=== PATIENT | male | born 1950 | race Caucasian/White ===

== ENCOUNTER 2020-03-09 12:19 | Inpatient (IN) | payer MEDICARE, OTHER ==
[~2020-03-09] VITALS: Ht 188 cm; Wt 64.0 kg
[2020-03-09] MEDS ORDERED: OLAN10TA3 PO (12:39)
[2020-03-09] MEDS ORDERED: OLAN20TA3 PO (12:39)
--- NOTE | 2020-03-09 12:49 | NUR ---
Dr Laws at the bedside for MSE.
--- NOTE | 2020-03-09 12:54 | NUR ---
Lunch tray provided, pt ate w/ good appetite.
[2020-03-09 12:56] LABS: CARBON DIOXIDE 26 mmol/L (21-32); CHLORIDE 104 mmol/L (98-107); CREATININE 0.9 mg/dL (0.6-1.3); GLUCOSE 89 mg/dL (74-106); POTASSIUM 4.3 mmol/L (3.5-5.1); UREA NITROGEN, BLOOD 14 mg/dL (7-18)
[2020-03-09 13:02] LABS: ALANINE AMINOTRANSFERASE 37 U/L (16-63); ALKALINE PHOSPHATASE 53 U/L (50-136); ASPARTATE AMINOTRANSFERASE 26 U/L (15-37); BILIRUBIN,DIRECT 0.1 mg/dL (0.0-0.2); BILIRUBIN,TOTAL 0.4 mg/dL (0.2-1.0); TOTAL PROTEIN, SERUM 7.2 g/dL (6.4-8.2)
[2020-03-09 13:03] LABS: ACETAMINOPHEN < 2.0 ug/mL (10-30); BASOPHILS # (AUTO) 0.1 K/uL (0.0-8.0); BASOPHILS % (AUTO) 0.7 % (0.0-2.0); EOSINOPHILS # (AUTO) 0.1 K/uL (0.0-0.7); EOSINOPHILS % (AUTO) 1.1 % (0.0-7.0); HEMATOCRIT 45.4 % (36.7-47.1); HEMOGLOBIN 15.2 g/dL (12.5-16.3); LYMPHOCYTES # (AUTO) 1.9 K/uL (20.0-40.0); LYMPHOCYTES % (AUTO) 20.2 % (20.5-51.5); MEAN CORPUSCULAR HEMOGLOBIN 28.8 uug (23.8-33.4); MEAN CORPUSCULAR HGB CONC 34 g/dL (32.5-36.3); MEAN CORPUSCULAR VOLUME 85.8 fL (73.0-96.2); MONOCYTES # (AUTO) 1.3 K/uL (2.0-10.0); MONOCYTES % (AUTO) 13.6 % (0.0-11.0); NEUTROPHILS # (AUTO) 6.2 K/uL (1.8-8.9); NEUTROPHILS % (AUTO) 64.4 % (38.5-71.5); PLATELET COUNT (AUTO) 166 K/uL (152-348); RED BLOOD CELL COUNT(AUTO) 5.29 MIL/uL (4.06-5.63); WHITE BLOOD COUNT (AUTO) 9.6 K/uL (3.6-10.2)
[2020-03-09 13:06] LABS: ETHANOL < 3 MG/DL (0-0)
--- NOTE | 2020-03-09 13:45 | NUR ---
Patient is resting comfortably in bed with eyes closed, NAD noted.
--- NOTE | 2020-03-09 13:49 | NUR ---
Anjum mcneill in [facility] - 03/09/[address] at [address] Laws at the bedside for MSE.
[2020-03-09] MEDS ORDERED: MAGNESIUM HYDROXIDE 30 ML LIQUID UDC PO PRN (15:00)
[2020-03-09] MEDS ORDERED: BLOOD SUGAR DIAGNOSTIC 1 EACH STRIP VI ONE (15:00)
[2020-03-09] MEDS ORDERED: MAG HYDROX/AL HYDROX/SIMETH 30 ML LIQUID UDC PO PRN (15:00)
[2020-03-09 15:16] VITALS: BP 139/89
[2020-03-09] MEDS: LORAZEPAM 0.5 MG TABLET PO PRN (15:30)
--- NOTE | 2020-03-09 16:26 | NUR ---
GPS ADMISSION NOTES, ADMITTING THIS 69 Y MALE FROM EMERGENCY ROOM ON WHEELCHAIR, PATIENT APPEAR TO BE UN KEPT, DISORGANIZED AND CONFUSED, PATIENT AOX1-2, VS STABLE WITH TEMP 98f PATIENT REFUSED TO SIGN PAPERS AND STAYED IN HIS ROOM AFTER CHANGING HIS GOWN, PATIENT ASKED FOR ATIVAN AND TOOK A NAP, ADVISEMENT OF HIS HOLD WAS GIVEN AND ASSESS FROM HEAD TO TOE NOTED SOME RASHES, PATIENT HAS DARKENED FINGERNAILS THAT LOOKS LIKE FROM CHRONIC CIGARETTES SMOKING, WILL CONTINUE MONITOR
[2020-03-09] MEDS: ACETAMINOPHEN 325 MG TABLET PO PRN (17:51)
[2020-03-09 20:36] VITALS: BP 119/70
[2020-03-09] MEDS: TEMAZEPAM 7.5 MG CAPSULE PO PRN (20:53)
[2020-03-10] MEDS: LORAZEPAM 0.5 MG TABLET PO PRN ×4 (01:50→17:47)
--- NOTE | 2020-03-10 06:11 | NUR ---
GPS: Pt.slept for 4 hrs last night. Observed to be intermittently talking to self last night. No increased agitation noted. Safe environment provided. Ativan PO given for anxiety prn. Will continue to re-direct prn.
[2020-03-10 07:30] VITALS: BP 135/86
[2020-03-10 08:23] LABS: BILIRUBIN,TOTAL 0.3 mg/dL (0.2-1.0); CREATININE 0.7 mg/dL (0.6-1.3); TOTAL PROTEIN, SERUM 7.3 g/dL (6.4-8.2)
--- NOTE | 2020-03-10 10:09 | NUR ---
pt in day room voices no complaints at this time no acute distress willl cont to monitor. able to make needs known
[2020-03-10] MEDS: OLANZAPINE 2.5 MG TABLET PO SCH ×2 (13:00→16:01)
--- NOTE | 2020-03-10 14:13 | NUR ---
Social Work Initial Discharge: Patient currently resides at a Board and Care at [address] [place] [address]; ([phone]). Patient's sister Valerie ([phone]) is involved in patient's care, however; she is unavailable at the moment. bridge worker contacted writing manager Josh ([phone]) and it was a wrong number. bridge worker will work with the patient and the MD regarding appropriate discharge planning. bridge worker will form a safe and proper discharge plan.
--- NOTE | 2020-03-10 14:14 | NUR ---
Social Work Family Contact: ornamental bronze worker contact contacted patient's sister Valerie ([phone]) who was unavailable. This policy writer typist left a voicemail.
--- NOTE | 2020-03-10 14:16 | NUR ---
Social Work Coordination of Care: emergency service worker contacted home visit field care manager Josh ([phone]) and it was a wrong number. This entry writer is attempting to find more information on patient's Board and Care.
[2020-03-10 16:00] VITALS: BP 141/91
--- NOTE | 2020-03-10 17:47 | NUR ---
PT IN DAY ROOM SHOWS NO S/S OF ACUTE DISTRESS GIVEN PRN ATIVAN FOR ANXIETY DUE TO NOT SMOKING
--- NOTE | 2020-03-10 20:00 | NUR ---
RECEIVED PATIENT IN HIS ROOM IN BED SLEEPING BUT EASILY AROUSABLE. PATIENT NOTED A/O X 1. HE IS ABLE TO AMBULATE WITH STEADY GAIT AND ABLE TO MAKE HIS NEEDS KNOWN. UPON INTERVIEW, PATIENT STATED THAT HE WAS FEELING ANXIOUS, WHEN ASKED WHAT MAKES HIM ANXIOUS, HE SAID "I WANT TO SMOKE BUT THEY DON'T LET ME". PATIENT WAS REASSURED AND REDIRECTED. MOOD IS DEPRESSED, AFFECT IS BLUNTED. HE DENIED SI/HI/VH/AH. HE IS ABLE TO CFS. PATIENT IS REASSURED FOR HIS SAFETY. V/S STABLE AT THIS TIME. SAFETY AND FALL PRECAUTION IN PLACE. WILL CONTINUE TO MONITOR.
[2020-03-10 20:30] VITALS: BP 149/95
[2020-03-10] MEDS ORDERED: OLANZAPINE 5 MG TABLET PO SCH (21:00)
[2020-03-11] MEDS ORDERED: NICOTINE 21 MG/24HR PATCH TD SCH (01:29)
[2020-03-11 07:30] VITALS: BP 139/87
[2020-03-11] MEDS: OLANZAPINE 2.5 MG TABLET PO SCH (08:27)
[2020-03-11] MEDS: NICOTINE 21 MG/24HR PATCH TD SCH (08:27)
--- NOTE | 2020-03-11 09:50 | NUR ---
Social Work Family Contact: tie up worker contacted patient's sister Valerie ([phone]) to gather collateral. Per Valerie, she would want patient to return back to his Independent Living; Resort Desk Clerk Josh ([phone]).
--- NOTE | 2020-03-11 09:51 | NUR ---
Social Work Coordination of Care: harm reduction worker spoke with Josh ([phone]) area safety manager of patient's Independent Living that he resides out. Per Josh, he stated that patient is welcomed back upon discharge.
[2020-03-11] MEDS: LORAZEPAM 0.5 MG TABLET PO PRN ×2 (10:33→16:06)
[2020-03-11] MEDS ORDERED: OLANZAPINE 2.5 MG TABLET PO SCH (13:00)
[2020-03-11] MEDS: OLANZAPINE 5 MG TABLET PO SCH (13:16)
--- NOTE | 2020-03-11 14:51 | NUR ---
Social Work Note/Substance Abuse Intervention: Patient was provided with a brief substance abuse intervention and referred to [facility] ([phone]), [facility] ([phone]), and [facility] ([phone]).
[2020-03-11 16:08] VITALS: BP 118/71
--- NOTE | 2020-03-11 20:25 | NUR ---
Received patient in his room, initiative to contact, patient is focused on ativan. Patient is med compliant, no behavioral issue, will remain in a [facility] facility for further evaluation and treatment.
[2020-03-11 20:41] VITALS: BP 120/80
[2020-03-11] MEDS ORDERED: OLANZAPINE 5 MG TABLET PO SCH (21:00)
[2020-03-12 08:02] VITALS: BP 132/88
[2020-03-12] MEDS: OLANZAPINE 5 MG TABLET PO SCH ×3 (08:11→20:52)
[2020-03-12] MEDS: NICOTINE 21 MG/24HR PATCH TD SCH (08:11)
--- NOTE | 2020-03-12 09:48 | NUR ---
Social Work PC Hearing Notification: tool salvage worker contacted patient's sister Valerie, ([phone]) and notified patients probable cause of hearing today.
[2020-03-12] MEDS: LORAZEPAM 0.5 MG TABLET PO PRN ×3 (10:27→20:04)
--- NOTE | 2020-03-12 15:00 | NUR ---
Social Work Individual Therapy Note: derrick worker met with patient for brief counseling to address patient's aggressive and combative behavior. Patient was cooperative and calm with this newspaper writer. Patient stated that he was only "aggressive" at the facility because he "did something". Patient did not want to mention what he did. Patient stated he no longer is aggressive or combative. This newspaper writer explored alternative coping skills on how to handle his anger in a stressful situation. Patient stated that he "usually" walks away in a stressful situation. derrick worker actively listened, provided support, and helped patient find alternative coping skills.
--- NOTE | 2020-03-12 15:26 | NUR ---
Gps/Senior Firewall Engineer-Attends group therapy, redirectable. Compliant with routine meds. kept coming to the nurses station, asking when her next medications.. Flat affect , anxious.
[2020-03-12 16:00] VITALS: BP 140/85
--- NOTE | 2020-03-12 18:19 | NUR ---
Gps/Director Dietetics Department- Stayed in the dinning room during meals. Stayed in the activity room during the afternoon. Flat affect, kept coming to the Nurses station asking when his next medications due. Constant redirections.
[2020-03-12 20:00] VITALS: BP 125/69
--- NOTE | 2020-03-12 23:18 | NUR ---
PATIENT RECEIVED IN HALLWAY ALERT/ORIENTED X 2 WITH CONFUSION NOTED. PATIENT CONTINUES TO ASK FOR ATIVAN. PATIENT COMPLAINT WITH MEDICATION. IN NO APPARENT DISTRESS AND NO AGGRESSIVE OR COMBATIVE BEHAVIOR NOTED. PATIENT IS EASILY IRRITABLE.
[2020-03-13 07:30] VITALS: BP 121/72
[2020-03-13] MEDS: OLANZAPINE 5 MG TABLET PO SCH ×3 (09:22→20:43)
[2020-03-13] MEDS: NICOTINE 21 MG/24HR PATCH TD SCH (09:23)
--- NOTE | 2020-03-13 14:20 | NUR ---
Social Work Individual Therapy Note: harm reduction worker met with patient for brief counseling to address patient's aggressive and combative behavior. Patient was cooperative and calm with this publicity writer. Patient is able to have meaningful conversation with this publicity writer. This publicity writer and patient discussed on "How to Manage Anger" and patient stated that "everyone needs to think positive to be positive". Patient stated that he is "very positive" and tries to stay positive. harm reduction worker actively listened, provided support, and guidance.
[2020-03-13] MEDS: LORAZEPAM 0.5 MG TABLET PO PRN ×2 (14:31→19:43)
[2020-03-13 15:55] VITALS: BP 140/89
[2020-03-13 21:28] VITALS: BP 131/82
--- NOTE | 2020-03-14 06:59 | NUR ---
GPS/ PT WAS RECEIVED IN ROOM, ALERT WITH FREQUENT NEED TO ASK FOR ATIVAN. PRN WAS GIVEN AND WAS EFFECTIVE. ROUTINE MEDS TOLERATED WELL. PT SLEPT 7.00HRUS DURING NIGHT. NO BEHAVIOR OR C/O NOTED.
[2020-03-14 07:30] VITALS: BP 110/63
[2020-03-14] MEDS: LORAZEPAM 0.5 MG TABLET PO PRN ×2 (07:49→15:55)
[2020-03-14] MEDS: NICOTINE 21 MG/24HR PATCH TD SCH (08:37)
[2020-03-14] MEDS: OLANZAPINE 5 MG TABLET PO SCH ×3 (08:37→20:14)
[2020-03-14 16:00] VITALS: BP 123/80
--- NOTE | 2020-03-14 17:00 | NUR ---
Gps/Manager Business Management- Patient continued asking when he can have his ativan again ,informed patient medication schedules . Needed constant reminder, redirections. Anxious, claimed he has the urge to smoke, reminded pt. he had a nicotine patch on , claimed it does not work.
[2020-03-14 21:09] VITALS: BP 138/85
[2020-03-15 07:30] VITALS: BP 114/84
[2020-03-15] MEDS: NICOTINE 21 MG/24HR PATCH TD SCH (08:38)
[2020-03-15] MEDS: OLANZAPINE 5 MG TABLET PO SCH ×3 (08:39→20:21)
[2020-03-15] MEDS: LORAZEPAM 0.5 MG TABLET PO PRN ×3 (11:12→20:20)
--- NOTE | 2020-03-15 11:57 | NUR ---
Gps/Lobbyist- Angry at the ALARM SECURITY OR SURVEILLANCE MONITOR, wanting to give self shower but per ALARM SECURITY OR SURVEILLANCE MONITOR pt. not initiating to shower, noted difficulty sequencing task, staring down the floor, water running but not doing anything. Needed verbal cueing and encouragement, irritability noted. PRN ativan 0.5 mg 1 tab was given po.
[2020-03-15 16:00] VITALS: BP 133/79
[2020-03-15 20:48] VITALS: BP 107/60
--- NOTE | 2020-03-15 21:43 | NUR ---
GPS/RN: PT WAS RECEIVED IN HIS BED, AWAKE AND A/O X2. VERBALLY RESPOND TO ASSESSMENT QUESTIONS. PT WAS RESTLESS AND FREQUENTLY ASKING FOR ATIVAN. ORIENT TO TIME AND WHEN PRN WILL BE DUE. PT UNABLE TO TEAMS WITH REALITY. PRN ATIVAN WAS GIVEN ORDER. PT RESTING AT THIS TIME. WILL CONTINUE TO OBSERVE.
[2020-03-16 07:30] VITALS: BP_SYST 106; BP_SYST 125; BP_DIAS 57; BP_DIAS 85
[2020-03-16] MEDS: NICOTINE 21 MG/24HR PATCH TD SCH (10:13)
[2020-03-16] MEDS: OLANZAPINE 5 MG TABLET PO SCH ×3 (10:30→20:07)
--- NOTE | 2020-03-16 14:35 | NUR ---
Social Work Individual Therapy Note: foundry worker met with patient for brief counseling to address patient's aggressive and combative behavior. Patient was cooperative and calm with this health technical writer. Patient is able to have a meaningful conversation and stated what his favorite hobbies are. Patient stated that when he goes outside in the sun he feels "more calm". This health technical writer actively listened and provided support.
[2020-03-16] MEDS: ACETAMINOPHEN 325 MG TABLET PO PRN (15:15)
[2020-03-16 15:40] VITALS: BP 114/64
[2020-03-16] MEDS: LORAZEPAM 0.5 MG TABLET PO PRN (17:18)
[2020-03-16 20:15] VITALS: BP 141/86
[2020-03-16] MEDS: TEMAZEPAM 7.5 MG CAPSULE PO PRN (21:22)
[2020-03-17 07:59] VITALS: BP 119/74
[2020-03-17] MEDS: NICOTINE 21 MG/24HR PATCH TD SCH (08:23)
[2020-03-17] MEDS: OLANZAPINE 5 MG TABLET PO SCH ×3 (08:23→20:23)
--- NOTE | 2020-03-17 11:00 | NUR ---
Social Work Note: iron worker apprentice spoke with Board and Care haz tech Josh ([phone]) who stated that he would want to resume [facility] ([phone]). iron worker apprentice contacted [facility] ([phone]) and spoke with Any who scheduled an appointment for a nurse to evaluate patient upon discharge.
[2020-03-17] MEDS: MULTIVITAMINS,THERAPEUTIC TABLET PO SCH (11:05)
[2020-03-17] MEDS: LORAZEPAM 0.5 MG TABLET PO PRN ×3 (11:07→20:52)
--- NOTE | 2020-03-17 11:35 | NUR ---
Social Work Coordination of Care: Social work contacted patient's doctor office and (Food Service Attendant) Dr. Cedillo will follow up with patient upon discharge at his Board and Care. trolley worker contacted [facility] and spoke with [facility] who scheduled with his (Psychiatrist) Dr. Haley from [facility] [address] [place] [address] [address], [place] [address]; ([phone]) on April 02, 2020 at 2:45PM via phone call. trolley worker contacted [facility] ([phone]) and spoke with [facility] who scheduled an appointment for a nurse to evaluate patient upon discharge.
--- NOTE | 2020-03-17 11:57 | NUR ---
Social Work Firearm Report: Voice Over Artist completed and submitted a [employer] firearms report for 5250 grave disability certification. A copy of report has been placed in patient chart.
[2020-03-17 15:57] VITALS: BP 110/61
[2020-03-17 20:55] VITALS: BP 109/59
--- NOTE | 2020-03-18 03:56 | NUR ---
GPS/RN: PT WAS NOTED WITH SOME RESTLESSNESS AND ASKING FOR PRN ATIVAN. MEDICATION GIVEN ORDER AND ROUTINE MEDS. PT WAS REDIRECTED, AND ENCOURAGED TO VENT OUT FEELINGS TO REDUCE STRESS. ABLE TO KEPT CALM AT THIS TIME ASLEEP AND Q 15/MINS HEAD COUNT CONTINUE.
[2020-03-18 07:30] VITALS: BP 128/71
[2020-03-18 08:13] LABS: BASOPHILS % (AUTO) 0.7 % (0.0-2.0); EOSINOPHILS # (AUTO) 0.1 K/uL (0.0-0.7); EOSINOPHILS % (AUTO) 1.6 % (0.0-7.0); HEMATOCRIT 41.2 % (36.7-47.1); HEMOGLOBIN 13.9 g/dL (12.5-16.3); LYMPHOCYTES # (AUTO) 1.5 K/uL (20.0-40.0); LYMPHOCYTES % (AUTO) 23.8 % (20.5-51.5); MEAN CORPUSCULAR HEMOGLOBIN 28.9 uug (23.8-33.4); MEAN CORPUSCULAR HGB CONC 34 g/dL (32.5-36.3); MONOCYTES # (AUTO) 0.9 K/uL (2.0-10.0); NEUTROPHILS # (AUTO) 3.9 K/uL (1.8-8.9); NEUTROPHILS % (AUTO) 59.9 % (38.5-71.5); PLATELET COUNT (AUTO) 170 K/uL (152-348); RED BLOOD CELL COUNT(AUTO) 4.79 MIL/uL (4.06-5.63); WHITE BLOOD COUNT (AUTO) 6.5 K/uL (3.6-10.2)
[2020-03-18 08:38] LABS: THYROID STIMULATING HORMONE 0.855 mIU/mL (0.358-3.740)
[2020-03-18 08:57] LABS: BILIRUBIN,TOTAL 0.3 mg/dL (0.2-1.0); CREATININE 0.9 mg/dL (0.6-1.3); MAGNESIUM 1.7 mg/dL (1.8-2.4); PHOSPHOROUS 3.4 mg/dL (2.5-4.9); POTASSIUM 4.3 mmol/L (3.5-5.1); TOTAL PROTEIN, SERUM 6.8 g/dL (6.4-8.2)
[2020-03-18] MEDS: NICOTINE 21 MG/24HR PATCH TD SCH (09:43)
[2020-03-18] MEDS: OLANZAPINE 5 MG TABLET PO SCH ×3 (09:43→20:05)
[2020-03-18] MEDS: MULTIVITAMINS,THERAPEUTIC TABLET PO SCH (09:43)
[2020-03-18] MEDS: LORAZEPAM 0.5 MG TABLET PO PRN ×2 (11:04→17:08)
[2020-03-18] MEDS ORDERED: SILVER NITRATE APPLICATOR STICK EACH TP ONE (13:45)
[2020-03-18] MEDS ORDERED: MAGNESIUM OXIDE 400 MG TABLET PO ONE (14:00)
[2020-03-18 16:00] VITALS: BP 128/78
[2020-03-18 20:58] VITALS: BP 126/83
--- NOTE | 2020-03-18 21:31 | NUR ---
Received patient in the hallway. Calm and cooperative. Med compliant. No behavioral issue will remain in a psych facility for further evaluation and treatment.
[2020-03-19 07:30] VITALS: BP 118/71
[2020-03-19] MEDS: MULTIVITAMINS,THERAPEUTIC TABLET PO SCH (08:23)
[2020-03-19] MEDS: OLANZAPINE 5 MG TABLET PO SCH ×3 (08:24→21:26)
[2020-03-19] MEDS: NICOTINE 21 MG/24HR PATCH TD SCH (08:29)
[2020-03-19] MEDS: LORAZEPAM 0.5 MG TABLET PO PRN ×3 (11:44→20:27)
--- NOTE | 2020-03-19 11:47 | NUR ---
Gps/Curator Of Collections- Per patient , he takes ativan because he has urge, anxious to smoke, and when he leaves here he will go back to smoking per pt.
--- NOTE | 2020-03-19 15:37 | NUR ---
Gps/Tapering Machine Operator-Kept coming to Nurses station, kept asking what time he can have his next ativan, claimed he is feeling anxious ,wanting to smoke.
[2020-03-19 16:00] VITALS: BP 138/76
[2020-03-19 20:00] VITALS: BP 136/82
[2020-03-20 07:30] VITALS: BP 144/93
[2020-03-20] MEDS: OLANZAPINE 5 MG TABLET PO SCH ×2 (08:00→12:25)
[2020-03-20] MEDS: MULTIVITAMINS,THERAPEUTIC TABLET PO SCH (08:00)
[2020-03-20] MEDS: NICOTINE 21 MG/24HR PATCH TD SCH (08:00)
--- NOTE | 2020-03-20 08:05 | NUR ---
Social Work Discharge Note: Patient will be discharged home to his [facility] and Care [address] [place] [address]; ([phone]). Per patients sister Valerie, ([phone]) stated that hplc chemist of patients [facility] and [facility], Josh ([phone]) will product picker patient at 1PM. Patients sister Valerie ([phone]) is aware and agreeable with discharge plan. Patient is aware and agreeable with discharge plan. Patient denies suicidal or homicidal ideation. Patient presents with appropriate mood and congruent affect. Patient will continue following up with his (Loan Processing Supervisor) Dr. Cedillo at his [facility] on 03/22/20. Patient will also be following up with his (Psychiatrist) Dr. Haley from [facility] [address] [facility] [address], [place] [address]; ([phone]) on April 02, 2020 at 2:45PM via phone call and will discuss smoking cessation and address substance abuse dependency. [facility] ([phone]) will resume services and a nurse will evaluate patient on 03/21/20. Patient will follow up with substance abuse programs: [facility] Substance Abuse Self-helpline ; [facility] ([phone]); [facility] ; [facility] ([phone]); [facility] ([phone]); [facility] ([phone]); [facility] ([phone]). Patient presents with euthymic mood and congruent affect.
[2020-03-20] MEDS: LORAZEPAM 0.5 MG TABLET PO PRN (11:22)
--- NOTE | 2020-03-20 12:46 | NUR ---
Gps/Apartment Maintenance Manager- For discharged to [facility] this pm at 1300, Josh (otr owner operator truck driver of the facility) will provide transportation. Reviewed discharged instructions, all belongings given back to patient, denies pain, no discomfort, Denies S.I. no homocidal ideation noted. Patient claimed he is happy to go home. reviewed diet, prescriptions/medications, safety, skin care , follow up with his Psychiatrist and Medicial Doctor, verbalized understanding.
== END 2020-03-20 13:30 | DRG 885 ==
LOC: ER 12:19 → GPS 13:50
PROVIDERS: ADMIT Psychiatry & Neurology Psychosomatic Medicine; ATTEND Internal Medicine
PROC: 0HBRXZZ Excision of Toe Nail, External Approach (ICD-10-PCS; principal; 2020-03-18)
DX: F25.9 Schizoaffective disorder, unspecified (principal); E44.0 Moderate protein-calorie malnutrition; Z68.1 Body mass index [BMI] 19.9 or less, adult; B35.1 Tinea unguium; E83.42 Hypomagnesemia; F17.210 Nicotine dependence, cigarettes, uncomplicated; R62.7 Adult failure to thrive; E88.09 Other disorders of plasma-protein metabolism, not elsewhere classified; F03.90 Unspecified dementia, unspecified severity, without behavioral disturbance, psychotic disturbance, mood disturbance, and anxiety
CPT/HCPCS: 36415; 71045; 80329; 82652; 83735; 84100; 84153; 84443; 85025; 93005; A4663; G0480; G0480-TC

== ENCOUNTER 2020-03-31 13:41 | Inpatient (IN) | payer MEDICARE, OTHER ==
[~2020-03-31] VITALS: Ht 185.4 cm; Wt 63.0 kg
[2020-03-31] MEDS ORDERED: OLAN20TA3 PO (14:04)
[2020-03-31] MEDS ORDERED: NICOTINE ALT NOSTRI (14:04)
[2020-03-31] MEDS ORDERED: LORA-259 PO (14:04)
[2020-03-31] MEDS ORDERED: NICO2GUM9 BC (14:09)
[2020-03-31 14:24] LABS: BASOPHILS # (AUTO) 0.1 K/uL (0.0-8.0); BASOPHILS % (AUTO) 0.9 % (0.0-2.0); EOSINOPHILS # (AUTO) 0.2 K/uL (0.0-0.7); EOSINOPHILS % (AUTO) 2.4 % (0.0-7.0); HEMATOCRIT 43.9 % (36.7-47.1); HEMOGLOBIN 14.7 g/dL (12.5-16.3); LYMPHOCYTES % (AUTO) 30.6 % (20.5-51.5); MEAN CORPUSCULAR HEMOGLOBIN 28.7 uug (23.8-33.4); MEAN CORPUSCULAR HGB CONC 33 g/dL (32.5-36.3); MEAN CORPUSCULAR VOLUME 85.9 fL (73.0-96.2); MONOCYTES % (AUTO) 14.4 % (0.0-11.0); NEUTROPHILS # (AUTO) 3.4 K/uL (1.8-8.9); NEUTROPHILS % (AUTO) 51.7 % (38.5-71.5); PLATELET COUNT (AUTO) 198 K/uL (152-348); RED BLOOD CELL COUNT(AUTO) 5.11 MIL/uL (4.06-5.63); WHITE BLOOD COUNT (AUTO) 6.6 K/uL (3.6-10.2)
[2020-03-31 14:48] LABS: CARBON DIOXIDE 25 mmol/L (21-32); CHLORIDE 107 mmol/L (98-107); GLUCOSE 74 mg/dL (74-106); POTASSIUM 4.4 mmol/L (3.5-5.1); UREA NITROGEN, BLOOD 16 mg/dL (7-18)
[2020-03-31 14:54] LABS: ALANINE AMINOTRANSFERASE 47 U/L (16-63); ALKALINE PHOSPHATASE 55 U/L (50-136); ASPARTATE AMINOTRANSFERASE 31 U/L (15-37); BILIRUBIN,DIRECT 0.2 mg/dL (0.0-0.2); BILIRUBIN,TOTAL 0.4 mg/dL (0.2-1.0); ETHANOL < 3 MG/DL (0-0); TOTAL PROTEIN, SERUM 7.6 g/dL (6.4-8.2)
[2020-03-31 14:55] LABS: ACETAMINOPHEN < 2.0 ug/mL (10-30)
--- NOTE | 2020-03-31 15:00 | NUR ---
pt requesting for a medicine to " calm his nerves down". notified.
[2020-03-31] MEDS ORDERED: LORAZEPAM 0.5 MG TABLET PO ONE (15:15)
[2020-03-31] MEDS ORDERED: LORAZEPAM 1 MG TABLET ONE (15:18)
--- NOTE | 2020-03-31 15:30 | NUR ---
hospital lunch tray provided for pt. pt ate with good apetite.
[2020-03-31 16:00] VITALS: BP 128/84
--- NOTE | 2020-03-31 16:04 | NUR ---
transfered pt to [facility] in stable condition. pt remained calm and comfortable the whole er stay.
[2020-03-31] MEDS ORDERED: MAGNESIUM HYDROXIDE 30 ML LIQUID UDC PO PRN (16:30)
[2020-03-31] MEDS ORDERED: MAG HYDROX/AL HYDROX/SIMETH 30 ML LIQUID UDC PO PRN (16:30)
[2020-03-31] MEDS: LORAZEPAM 0.5 MG TABLET PO PRN (17:59)
--- NOTE | 2020-03-31 18:04 | NUR ---
ADMITTING THIS 69Y MALE TO [facility] UNIT PATIENT AOX1-2, ON THE [facility] PATIENT, PATIENT VS 128/84, 98.7, 89, 18, PO2 99 WITH 0/10 PAIN SCALE, PATIENT WA ASKING FOR ATIVAN UPON ARRIVAL TO UNIT , PATIENT WAS FAMILIAR TO THE UNIT BECAUSE OF PREVIOUS ADMISSION, WAS RECENTLY DISCHARGE LAST MARCH 20, MD MADE AWARE OF THE ADMISSION WITH ORDERS MADE AND CARRIED OUT, PATIENT WAS ORIENTED WITH THE UNIT, ADVISEMENT WAS GIVEN AT THE BEDSIDE, PATIENT COMPLIANT WITH THE ADMISSION, WILL CONTINUE MONITOR
[2020-03-31 19:59] VITALS: BP 134/97
[2020-03-31] MEDS: TEMAZEPAM 7.5 MG CAPSULE PO PRN (21:16)
--- NOTE | 2020-03-31 22:00 | NUR ---
received to care, anxious, but pleasant upon approach. requested ativan at start of shift, which was given at 1800. PRN restoril was given at 2115, for insomnia. as of 2199, he appears to be asleep. no distress noted. will continue to monitor closely.
--- NOTE | 2020-04-01 06:00 | NUR ---
slept 6.0 hours. continues to sleep. no distress noted.
[2020-04-01 08:07] VITALS: BP 140/94
[2020-04-01] MEDS: NICOTINE 14 MG/24HR PATCH TD SCH (09:04)
[2020-04-01] MEDS: LORAZEPAM 0.5 MG TABLET PO PRN ×3 (09:04→22:18)
[2020-04-01] MEDS: DIVALPROEX 250 MG TABLET.DR PO SCH ×3 (10:10→17:25)
[2020-04-01] MEDS: OLANZAPINE 5 MG TABLET PO SCH ×2 (10:10→20:01)
--- NOTE | 2020-04-01 12:06 | NUR ---
Social Work Initial Discharge Plan: Patient currently resides at a Board and Care at [address] [place] [address]; ([phone]). Patient's sister Valerie ([phone]) is involved in patient's care. This senior underwriter will contact sister Valerie. chemical worker contacted explosive ordnance disposal manager Josh ([phone]) and was unavailable at the moment. chemical worker will work with the patient and the MD regarding appropriate discharge planning. chemical worker will form a safe and proper discharge plan.
--- NOTE | 2020-04-01 15:36 | NUR ---
Social Work Coordination of Care: yard warehouse worker contacted CJ admin from [facility] ([phone]) who stated that patient is not accepted because of behavioral issues and that the DON denied.
--- NOTE | 2020-04-01 15:39 | NUR ---
Social Work Firearms Report: Sandwich Maker completed and submitted a [employer] firearms report for 5250 grave disability certification. A copy of report has been placed in patient chart.
--- NOTE | 2020-04-01 15:48 | NUR ---
Social Work Initial Discharge: set up worker spoke with wafer slicer Josh from patient's Independent Living ([phone]) and he stated he is unable to take of patient at the facility and is trying to find alternative placement. Per Josh, he asked this auto service writer to help with placement.
--- NOTE | 2020-04-01 15:51 | NUR ---
Social Work Individual Therapy: research worker encyclopedia met with patient for brief counseling to address patient's aggressive and combative behavior. Patient stated that the only reason be becomes physically aggressive is because he does not like the Independent Living that he resides at. Patient was able to communicate with this junior technical writer. This junior technical writer addressed that this junior technical writer will help to find patient alternative placement. Patient agreed for this junior technical writer find patient a SNF. This junior technical writer attempted to educate patient on the importance of developing strategies for coping with frustrating situations. Patient was receptive.
[2020-04-01 16:00] VITALS: BP 119/82
[2020-04-01 20:07] VITALS: BP 133/86
[2020-04-01] MEDS ORDERED: OLANZAPINE 5 MG TABLET PO SCH (21:00)
[2020-04-01] MEDS ORDERED: OLANZAPINE 2.5 MG TABLET PO SCH (21:00)
--- NOTE | 2020-04-01 23:00 | NUR ---
received to care, anxious, but pleasant upon approach. requested ativan at start of shift, which was not due again, until around 2199. he was offered restoril for insomnia, around 2099, but declined. preferring to wait for the ativan, which was given at 2217. as of 2299, he appears to be asleep. no distress noted. will continue to monitor closely.
--- NOTE | 2020-04-02 06:00 | NUR ---
slept 7.0 hours. continues to sleep. no distress noted.
--- NOTE | 2020-04-02 07:50 | NUR ---
Received patient in bed sleeping, No acute distress noted. Denies any pain at this time. Safety measures in place and will continue with care.
[2020-04-02 07:51] VITALS: BP 138/93
[2020-04-02] MEDS: NICOTINE 14 MG/24HR PATCH TD SCH (09:26)
[2020-04-02] MEDS: OLANZAPINE 5 MG TABLET PO SCH ×2 (09:26→21:18)
[2020-04-02] MEDS: DIVALPROEX 250 MG TABLET.DR PO SCH ×3 (09:26→16:37)
[2020-04-02] MEDS: LORAZEPAM 0.5 MG TABLET PO PRN ×2 (14:06→20:17)
--- NOTE | 2020-04-02 14:06 | NUR ---
Patient stating hes feeling very anxious and asked for Ativan, patient also noted pacing around the nurse's station. Medication administered and tolerated well.
--- NOTE | 2020-04-02 19:00 | NUR ---
Patient is A/O x 2, able to express needs. No acute distress noted during shift. patient stayed in room for most of the shift, patient is quiet, cooperative with care and medication. Took all due meds. Patient stated likes to stay in the room, did not want to attend activities for most of the shift. Took shower, ate well during the shift. kept clean and dry. NO c/o pain throughout shift. Safety measures in place, needs attended, monitored closely and will continue with care.
[2020-04-02 20:00] VITALS: BP 135/88
--- NOTE | 2020-04-02 22:00 | NUR ---
received to care, pleasant, but anxious and isolative, upon approach. requested ativan for anxiety, which was given at 2016. as of 2199, he appears to be asleep. no distress noted. will continue to monitor closely.
--- NOTE | 2020-04-03 06:00 | NUR ---
slept 8.5 hours. continues to sleep. no distress noted.
[2020-04-03 07:30] VITALS: BP 127/95
[2020-04-03] MEDS: OLANZAPINE 5 MG TABLET PO SCH ×2 (08:20→20:13)
[2020-04-03] MEDS: DIVALPROEX 250 MG TABLET.DR PO SCH ×3 (08:20→16:31)
[2020-04-03] MEDS: NICOTINE 14 MG/24HR PATCH TD SCH (08:21)
--- NOTE | 2020-04-03 10:38 | NUR ---
Social Work Coordination of Care: Patient is accepted to [facility] ([phone]) and will need COVID test 48 hours upon discharge. This field underwriter also faxed to [facility] ([phone]) and will let this field underwriter know if patient is accepted 04/06.
[2020-04-03] MEDS: LORAZEPAM 0.5 MG TABLET PO PRN ×2 (11:07→16:31)
--- NOTE | 2020-04-03 11:30 | NUR ---
Social Work Individual Therapy: early childhood education worker met with patient for brief counseling to address patients aggressive and combative behavior. Patient is calm and cooperative with this jingle writer. Patient is able to have a meaningful conversation. Patient states that he wants another place. This jingle writer reassured that long term care social worker will find a different placement for patient. Patient was happy. early childhood education worker actively listened.
--- NOTE | 2020-04-03 14:54 | NUR ---
Received patient this am. Awake and alert. V.S stable. Patient compliant with medications. Some anxiety noted and patient asked for a PRN. Patient seclusive and has minimal interaction with peers. No acute behavioral issues noted. Continuing to monitor for safety and increase in anxiety or agitation.
[2020-04-03 15:05] VITALS: BP 102/63
[2020-04-03 20:26] VITALS: BP 115/75
--- NOTE | 2020-04-04 05:51 | NUR ---
RN: PT A/O X2, NO ACUTE DISTRESS, NO SOB. PT CALM AND NO AGGRESSION. COOPERATIVE WITH ROUTINE MEDICATION. PT NOTED SELF ISOLATIVE AND STAYS IN HIS BED DURING NIGHT. ASLEEP AND EVEN BREATHING NOTED. Q 15/MINS HEAD CHECK ONGOING AND WILL CONTINUE TO MONITOR.
[2020-04-04 07:05] LABS: BASOPHILS % (AUTO) 0.5 % (0.0-2.0); EOSINOPHILS # (AUTO) 0.2 K/uL (0.0-0.7); EOSINOPHILS % (AUTO) 2.2 % (0.0-7.0); HEMATOCRIT 42.9 % (36.7-47.1); HEMOGLOBIN 14.5 g/dL (12.5-16.3); LYMPHOCYTES # (AUTO) 2.4 K/uL (20.0-40.0); LYMPHOCYTES % (AUTO) 30.9 % (20.5-51.5); MEAN CORPUSCULAR HGB CONC 34 g/dL (32.5-36.3); MEAN CORPUSCULAR VOLUME 85.8 fL (73.0-96.2); MONOCYTES # (AUTO) 1.1 K/uL (2.0-10.0); MONOCYTES % (AUTO) 13.7 % (0.0-11.0); NEUTROPHILS # (AUTO) 4.1 K/uL (1.8-8.9); NEUTROPHILS % (AUTO) 52.7 % (38.5-71.5); PLATELET COUNT (AUTO) 184 K/uL (152-348); RED BLOOD CELL COUNT(AUTO) 4.99 MIL/uL (4.06-5.63); WHITE BLOOD COUNT (AUTO) 7.7 K/uL (3.6-10.2)
[2020-04-04 07:55] VITALS: BP 147/91
[2020-04-04 08:37] LABS: BILIRUBIN,TOTAL 2.1 mg/dL (0.2-1.0); CREATININE 1.2 mg/dL (0.6-1.3); POTASSIUM 4.3 mmol/L (3.5-5.1); TOTAL PROTEIN, SERUM 7.4 g/dL (6.4-8.2)
[2020-04-04] MEDS: NICOTINE 14 MG/24HR PATCH TD SCH (09:41)
[2020-04-04] MEDS: OLANZAPINE 5 MG TABLET PO SCH ×2 (09:41→20:29)
[2020-04-04] MEDS: DIVALPROEX 250 MG TABLET.DR PO SCH ×3 (09:41→18:07)
--- NOTE | 2020-04-04 11:50 | NUR ---
Pt received resting in bed, AOx2, no SOB, no acute distress, and no pain. Pt compliant with routine medication administration. Pt agrees to CFS. No behavior issues this morning. Requests to continue to rest in bed. Will continue to monitor.
[2020-04-04] MEDS: LORAZEPAM 0.5 MG TABLET PO PRN (15:33)
[2020-04-04 16:24] VITALS: BP 137/93
[2020-04-04 20:00] VITALS: BP 116/68
[2020-04-04] MEDS: TEMAZEPAM 7.5 MG CAPSULE PO PRN (21:26)
--- NOTE | 2020-04-05 05:21 | NUR ---
GPS: PT A/OX2, NO NEW ABNORMAL NOTED. ROUTINE MEDICATION GIVEN AND PT MERCEDES WELL. FEW EPISODE OF INCREASE AGITATION NOTED WITH CONSTANTLY ASKING FOR ATIVAN. PT WAS TOLD IT WAS ADMINISTERED JUST FEW HOURS AGO AND NOT DUE. PT BECAME RESTLESS AND PACED WITHIN ROOM TO NURSES STATION. BY 2125 PT REQUESTED FOR SOMETHING TO HELP HIM SLEEP. RESTORIL PRN MED WAS GIVEN AND MONITOR. 0520: PT ASLEEP AND NOTED EVEN BREATHING, NO SOB OR DEPRESS RESP. WILL MONITOR [id number].
[2020-04-05 07:30] VITALS: BP 119/78
[2020-04-05] MEDS: OLANZAPINE 5 MG TABLET PO SCH ×2 (08:20→20:17)
[2020-04-05] MEDS: NICOTINE 14 MG/24HR PATCH TD SCH (08:20)
[2020-04-05] MEDS: DIVALPROEX 250 MG TABLET.DR PO SCH ×3 (08:21→17:25)
[2020-04-05] MEDS: LORAZEPAM 0.5 MG TABLET PO PRN ×2 (11:00→17:25)
--- NOTE | 2020-04-05 11:53 | NUR ---
Pt received resting in bed, AOx2, no acute distress, denies pain, and no SOB. Pt compliant with routine medication administration. Pt pacing hallway anxiously, PRN Ativan administered per PRN orders. Pt able to CFS, denies SI/HI at this time. Will continue to monitor for safety.
[2020-04-05 16:00] VITALS: BP 133/87
[2020-04-05 20:09] VITALS: BP 131/70
[2020-04-05] MEDS: ACETAMINOPHEN 325 MG TABLET PO PRN (21:35)
--- NOTE | 2020-04-06 06:03 | NUR ---
GPS: PT RECEIVED AWAKE IN BED, SELF ISOLATOR, REFUSED TO JOIN GROUP OR STAY IN TV ROOM. BUT FREQUENTLY WALKS TO NURSING STATION ASKING FOR ATIVAN. PRN WAS NOT DUE AND MADE AWARE. PT INSISTED FOR FEW TIMES AND REMIND PT NOT DUE. PT REQUESTED FOR TYLENOL ABOUT 2134 BECAUSE IT WILL HELP HIM SLEEP. PRN WAS ADMINISTERED AND CONTINUE MONITOR. PT SLEPT 7.30HRS DURING NIGHT.
[2020-04-06 08:10] VITALS: BP 117/71
[2020-04-06] MEDS: DIVALPROEX 250 MG TABLET.DR PO SCH ×3 (08:41→17:55)
[2020-04-06] MEDS: NICOTINE 14 MG/24HR PATCH TD SCH (08:41)
[2020-04-06] MEDS: OLANZAPINE 5 MG TABLET PO SCH ×2 (08:42→19:53)
--- NOTE | 2020-04-06 11:30 | NUR ---
Brief Substance Abuse Intervention: Patient was provided with a brief substance abuse intervention and referred to the following substance abuse programs: [facility] Substance Abuse Self-helpline ([phone]); [facility] [address] [place] [address] ([phone]); [facility] [address] [facility] [address] ([phone]); [facility] ([phone]); [facility] ([phone]); [facility] ([phone]); [facility] ([phone]).
[2020-04-06] MEDS: LORAZEPAM 0.5 MG TABLET PO PRN ×2 (12:01→18:01)
--- NOTE | 2020-04-06 12:07 | NUR ---
Pt received resting in bed, no acute distress, denies pain, and no SOB. Pt compliant with routine medication administration. Pt refused to attend group, self isolating in room instead. Pt able to CFS, denies SI/HI at this time. Pt pacing hallway anxiously after speaking with social worker clinical about discharge, possibly as early as later today, PRN Ativan administered per PRN orders. Will continue to monitor for safety.
--- NOTE | 2020-04-06 12:22 | NUR ---
SW Discharge Note: [facility] be discharged to [facility] [address] [place] [address] ([phone]) via ambulance transportation at 4pm today. Red Cap spoke with Caty, Construction Project Manager at the [facility] who confirmed patient will be accepted at facility today. Patient is alert and oriented x3-4. Patient is not able to plan for self-care at this time, however, is willing to accept care provided for him at the facility. Patient denies suicidal or homicidal ideation and is aware and agreeable with discharge plans. Patient will follow-up at the facility with Psychiatrist Dr. Bah and Clothes Model Dr. Mann. Patients sister Valerie ([phone]) is aware and agreeable with discharge plan. Patients Board and Care financial systems administrator, Josh ([phone]) has been notified of the patient's discharge plans. Patient was provided with a brief substance abuse intervention and referred to the following substance abuse programs: [facility] Substance Abuse Self-helpline ([phone]); [facility] [address] [place] [address] ([phone]); [place] [id number] [facility] [address] ([phone]); [facility] ([phone]); [facility] ([phone]); [facility] ([phone]); [facility] ([phone]).
[2020-04-06] MEDS: ACETAMINOPHEN 325 MG TABLET PO PRN (15:39)
[2020-04-06 15:53] VITALS: BP 138/87
--- NOTE | 2020-04-06 20:10 | NUR ---
pt discharged to [facility]. pt left via stretcher, in ambulance with all belongings, and in no acute distress.
== END 2020-04-06 20:10 | DRG 885 ==
LOC: ER 13:47 → GPS 15:58
PROVIDERS: ADMIT Psychiatry & Neurology Psychosomatic Medicine; ATTEND Internal Medicine
DX: F25.0 Schizoaffective disorder, bipolar type (principal); F03.91 Unspecified dementia, unspecified severity, with behavioral disturbance; F23 Brief psychotic disorder; E44.0 Moderate protein-calorie malnutrition; Z68.1 Body mass index [BMI] 19.9 or less, adult; L40.9 Psoriasis, unspecified; B35.1 Tinea unguium; F17.210 Nicotine dependence, cigarettes, uncomplicated
CPT/HCPCS: 36415; 70030-TC; 71045; 80164; 80329; 84443; 85025; 85730; 93005; A4663; G0480; G0480-TC; J3490